=== PATIENT | female | born 1955 | race Two or more races ===

== ENCOUNTER 2022-05-17 11:15 | Emergency (ER) | payer OTHER ==
[~2022-05-17] VITALS: Ht 160 cm; Wt 76.2 kg
[~2022-05-17 11:15] MED LIST: BRAIN MIGHT-DH1 EACH; CATAFLAM50 MG; DECADRON P4 MG/ML-1M IH; FLEXERIL10 MG; LIPITOR20 MG; OMEGA 3 FISH OI1 CAP; ORPH100T; OSTERA TABLET1 EACH; PANADOL MAXIMU500 MG; TORADOL60 MG IM
[2022-05-17] MEDS ORDERED: LEVOTHYROXINE50 MCG PO (11:44)
[2022-05-17] MEDS ORDERED: ATORVASTATIN CA10 MG PO (11:44)
== END 2022-05-17 15:25 | disposition home or self-care (01) ==
LOC: ER 11:15
DX: H66.92 Otitis media, unspecified, left ear (principal)